=== PATIENT | female | born 1970 | race Hispanic/Latino ===

== ENCOUNTER → 2018-11-28 | Outpatient (REF) | payer BC ==
[~2018-11-28] MED LIST: AMOXICILLIN/CL875 MG PO; AMOXICILLIN500 MG PO; BENZONATATE200 MG PO; CIPROFLOXACN500 MG PO; MULTI FOR HER PO; NAPROSYN500 MG PO; PROAIR HFA IN; TRAMADOL HYDROC50 MG PO; VALTREX1 GM PO
== END | disposition home or self-care (01) | DRG 761 ==
LOC: BD 14:30
PROVIDERS: ATTEND Nurse Practitioner Family
DX: N95.1 Menopausal and female climacteric states (principal)

== ENCOUNTER 2019-01-06 12:56 | Emergency (ER) | payer BC ==
[~2019-01-06] VITALS: Ht 160 cm; Wt 66.0 kg
[~2019-01-06 12:56] MED LIST changes: -TRAMADOL HYDROC50 MG PO; -VALTREX1 GM PO
[2019-01-06] MEDS ORDERED: TRAMADOL HYDROC50 MG PO (14:27)
[2019-01-06] MEDS ORDERED: VALTREX1 GM PO (14:27)
[2019-01-06 14:35] VITALS: BP 136/83
== END 2019-01-06 14:35 | disposition home or self-care (01) | DRG 596 ==
LOC: ED 12:56
DX: B02.9 Zoster without complications (principal)

== ENCOUNTER 2022-02-20 08:47 | Emergency (ER) | payer BC ==
[~2022-02-20] VITALS: Ht 160 cm; Wt 71.8 kg
[~2022-02-20 08:47] MED LIST changes: +TRAMADOL HYDROC50 MG PO; +VALTREX1 GM PO
[2022-02-20 09:32] LABS: URINE BILIRUBIN - DIPSTICK NEGATIVE (NEGATIVE); URINE BLOOD DIPSTICK NEGATIVE (NEGATIVE); URINE COLOR YELLOW; URINE GLUCOSE - DIPSTICK NEGATIVE (NEGATIVE); URINE KETONE NEGATIVE (NEGATIVE); URINE LEUK ESTERASE NEGATIVE (NEGATIVE); URINE PROTEIN - DIPSTICK NEGATIVE (NEG-TRACE); URINE UROBILINOGEN - DIPSTICK 0.2 E.U./dL (0.2)
[2022-02-20 09:35] LABS: URINE NITRITE - DIPSTICK NEGATIVE (Negative)
[2022-02-20 10:22] LABS: HEMATOCRIT 37.7 % (37.0-47.0); HEMOGLOBIN 12.7 g/dl (12.0-16.0); IMMATURE GRANULOCYTES 0.1 % (0.0-5.0); MEAN CELL VOLUME 91.7 fL CALC (80.0-100.0); MEAN CORPUSCULAR HGB 30.9 pG CALC (26.0-32.0); MEAN CORPUSCULAR HGB CONC 33.7 g/dL CAL (32.0-36.0); NEUT# 5.52 thou/uL (2.00-7.15); RED BLOOD COUNT 4.11 mill/uL (4.20-5.60); RED CELL DISTRI WIDTH 11.9 % (11.5-15.5)
[2022-02-20 10:51] LABS: ALBUMIN 3.9 g/dL (3.2-5.0); ALKALINE PHOSPHATASE 98 u/l (38-126); AMYLASE 73 u/l (30-110); ANION GAP 12 (6-22 (CALC)); BILIRUBIN, TOTAL 0.5 mg/dL (0.0-1.4); BUN 9 mg/dL (7-17); BUN/CREATININE RATIO 16 (12-20 (CALC)); CARBON DIOXIDE 29 mmol/l (22-30); CHLORIDE 105 mmol/l (95-108); CREATININE 0.6 mg/dL (0.5-1.0); GFR > 60 ML/MIN (>=60 (CALC)); GFR FOR AFR.AMER. > 60 ML/MIN (>=60 (CALC)); LIPASE 118 u/l (23-300); SGOT/AST 30 u/l (14-36); SODIUM 142 mmol/l (137-146); TOTAL PROTEIN 7.5 g/dL (6.3-8.2)
[2022-02-20] MEDS ORDERED: HYDROCO/APAP1 TA9 PO (12:06)
[2022-02-20] MEDS ORDERED: METRONIDAZOLE500 MG PO (12:06)
[2022-02-20] MEDS ORDERED: CIPROFLOXACN500 MG PO (12:06)
[2022-02-20 12:13] VITALS: BP 105/81
== END 2022-02-20 12:28 | disposition home or self-care (01) | DRG 392 ==
LOC: ED 08:47
DX: K57.32 Diverticulitis of large intestine without perforation or abscess without bleeding (principal); I86.2 Pelvic varices
CPT/HCPCS: Q9967